=== PATIENT | female | born 2000 | race Caucasian/White ===

== ENCOUNTER 2023-04-28 02:05 | Outpatient (CLI) | payer BC, SELFPAY | END 2023-04-28 02:06 | disposition home or self-care (01) | LOC: AMB 05-06 19:38 | PROVIDERS: PCP Family Medicine; Visit Provider Family Medicine | DX: S19.9XXA Unspecified injury of neck, initial encounter (principal); Y04.2XXA Assault by strike against or bumped into by another person, initial encounter; Y92.009 Unspecified place in unspecified non-institutional (private) residence as the place of occurrence of the external cause | CPT/HCPCS: A0425; A0429 ==

== ENCOUNTER 2023-04-28 02:39 | Emergency (ER) | payer BC, SELFPAY ==
[2023-04-28 02:47] VITALS: BP 120/82; PULSE 88; RESP 24; TEMP 37; O2SAT 99; BMI 20.6
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
[2023-04-28] MEDS: KETOROLAC 15 MG/ML inj IVP (04:00)
[2023-04-28] MEDS: LORazepam 2 MG/ML inj 0.5 MG IVP (04:00)
[2023-04-28 04:08] LABS: Ur HCG Qualitative* Negative (Negative)
== END 2023-04-28 05:41 | disposition home or self-care (01) ==
PROVIDERS: Emergency Provider Family Medicine; PCP Family Medicine
DX: T71.9XXA Asphyxiation due to unspecified cause, initial encounter (principal); Y04.2XXA Assault by strike against or bumped into by another person, initial encounter
CPT/HCPCS: 70498; 81025; 96374; 96375; 99284; J1885; J2060; Q9967

== ENCOUNTER 2023-07-04 11:34 | Outpatient (CLI) | payer BC, SELFPAY | END 2023-07-04 11:35 | disposition home or self-care (01) | PROVIDERS: PCP Family Medicine; Visit Provider Advanced Practice Midwife | DX: Z01.818 Encounter for other preprocedural examination (principal); Z11.3 Encounter for screening for infections with a predominantly sexual mode of transmission; Z71.1 Person with feared health complaint in whom no diagnosis is made | CPT/HCPCS: 86592; 86703; 86706; 86803; 87340; 87491; 87591 ==

== ENCOUNTER 2023-12-08 14:56 | Emergency (ER) | payer BC, SELFPAY ==
[2023-12-08 14:59] VITALS: BP 120/91; PULSE 74; RESP 16; TEMP 37.5; O2SAT 98; BMI 23.0
--- NOTE | 2023-12-08 15:10 | ED.ABDPAIN ---
HPI - Abdominal Pain General Time Seen by Provider: 15:10 Date Seen: 12/08/23 Chief Complaint: Abdominal Pain Stated Complaint: Abdominal pain R side -IUD issues? Time Seen by Provider: 12/08/23 14:58 Source: patient and RN notes reviewed Mode of arrival: ambulatory Limitations: no limitations History of Present Illness HPI narrative: 23-year-old female is coming in with concern of periumbilical right-sided abdominal pain. She is wondering if it could be her IUD. She had a ParaGard IUD put in about 3 months ago. She has had cramping since it was put in. She is hoping to get it switched to the arm implant, wonders if we could do that today. I unfortunately reviewed with her that we do not do Nexplanon insertion. She wonders if the IUD could have moved. She believes this pain awoke her around 5:00 a.m., feels like it is getting worse. Since yesterday, has had sense of increased need for defecation. The stools are normal but she is going a lot more. She states if she moves position or walks, feels a pulling sensation in her abdomen. She did eat breakfast this morning, has not eaten lunch but does feel hungry. No diarrhea, no nausea or vomiting. She has not had a fever. No prior abdominal surgery. On aware of any family history of appendicitis. MD elicited complaint: abdominal pain Related Data Patient : No Allergies Allergy/AdvReac Type Severity Reaction Status Date / Time No Known Allergies Allergy Unknown Unknown Verified 12/08/23 14:59 Review of Systems Status of ROS Reports: 6 or more systems reviewed and unremarkable except as noted in History and below PFSH PFS Medical History History of marijuana use ?F12.91 - Cannabis use, unspecified, in remission (ICD-10) Surgical History H/O breast augmentation ?Z98.82 - Breast implant status (ICD-10) History of sinus surgery (09/23/20) ?Z98.890 - Other specified postprocedural states (ICD-10) Family History Mother Breast cancer, Onset Age: 53 Social History Narrative: 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, 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, 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[employer], 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 Exercise 5 to 6 times a week by very physical work and weightlifting Nonsmoker Does not drink alcohol Smokes marijuana for anxiety What is your current living situation?: I presently have a place to live Problems where you live: no known problems In the past 12 months, utilities in danger of being shut off: no In past 12 months, lack of transportation kept you from medical appts, meetings, work, or getting things needed for daily living: no In the past 12 mos, have been you worried that your food would run out before you had money to buy more?: never true In the past 12 mos, the food you bought just didn't last and you didn't have money to buy more?: never true Highest level of school completed/degree received: high school graduate Smoking Status: Never smoker Do you use any of these nicotine containing products: None Second hand tobacco smoke exposure: No How often do you have a drink containing alcohol: never AUDIT-C Alcohol total score: 0 Non-prescribed substance use: marijuana (any form) How often does anyone, including family, friends and others, physically hurt you: never How often does anyone, including family, friends and others, insult or talk down to you: decline to answer How often does anyone, including family, friends and others, threaten you with harm: decline to answer How often does anyone, including family, friends and others, scream or curse at you: decline to answer Little interest or pleasure in doing things: several days Feeling down, depressed, or hopeless: more than half the days Are you currently sexually active: No In the past 12 months, how many sex partners have you had: more than one service: No Exam Const: Vital Signs, click to edit/add: Vital Signs - 24 hr 12/08/23 14:59 Temperature 99.5 F Pulse Rate [Pulse Oximeter] 74 Respiratory Rate 16 Blood Pressure [Le ft Upper Arm] 120/91 H Pulse Oximetry 98 Oxygen Delivery Me thod Room Air Only the very pleasant 23-year-old female, alert, interactive, no apparent distress. Sclera clear, face atraumatic, speech normal. Lungs are clear, good air entry, wheeze or crackles. CV regular rate and rhythm, no murmur, normal S1-S2, no S3-S4. Complains of pain when I have her lie back on the bed. Abdomen is nondistended, bowel sounds are present. She has no palpable organomegaly, has right paraumbilical abdominal pain with some guarding but no rebound. Does generalize slightly into the right lower quadrant. I do not feel any masses. Skin has tattoos but no no rash on skin visualized. Patient was ambulatory into the ED of her own accord. Documenting provider has reviewed patient's vital signs: yes Course Course ED Course: Patient will have an IV started, 15 mg of IV Toradol for pain management. We will proceed with CT imaging, labs. Have reviewed with her that certainly IUD migration is a possibility, will confirm negative hCG status, need to consider such things as appendicitis as well. Thus, star was CT imaging and labs. Reevaluation(s) Time of Reevaluation #1: 17:30 Reevaluation #1: Reviewed with patient her CT. We did review the possibly inflamed cervix. I think she is stable to discharge in follow-up with her primary clinic, can remove the IUD, do further inspection of cervix at that time. On re-evaluation, there certainly could be a component of abdominal wall pain. Patient has increased pain as I have her lie back. She feels the stomach is worse when stretching out. She does describe herself as a gym rat, does think there could be a muscular component here. She understands we could not effectively rule out other etiologies without imaging. Vital Signs Vital signs: Initial Vital Signs Temperature 99.5 F 12/08/23 14:59 Temperature Source Temporal Artery Scan 12/08/23 14:59 Pulse Rate 74 12/08/23 14:59 Respiratory Rate 16 12/08/23 14:59 Blood Pressure 120/91 H 12/08/23 14:59 Blood Pressure Mean 100 12/08/23 14:59 Blood Pressure Position Sitting 12/08/23 14:59 Pulse Oximetry 98 12/08/23 14:59 Oxygen Delivery Method Room Air 12/08/23 14:59 Vital Signs Temperature 99.5 F 12/08/23 14:59 Pulse Rate 74 12/08/23 14:59 Respiratory Rate 16 12/08/23 14:59 Blood Pressure 120/91 H 12/08/23 14:59 Pulse Oximetry 98 12/08/23 14:59 Oxygen Delivery Method Room Air 12/08/23 14:59 Temperature 99.5 F 12/08/23 14:59 Pulse Rate 74 12/08/23 14:59 Respiratory Rate 16 12/08/23 14:59 Blood Pressure 120/91 H 12/08/23 14:59 Pulse Oximetry 98 12/08/23 14:59 Oxygen Delivery Method Room Air 12/08/23 14:59 Medications Administered Medications: Discontinued Medications Generic Name Dose Route Start Last Admin Trade Name Freq PRN Reason Stop Dose Admin Ketorolac Tromethamine 15 mg 12/08/23 15:20 12/08/23 15:45 Ketorolac 15 Mg/Ml Inj IVP 12/08/23 15:21 15 mg ONCE ONE Administration MDM - Abdominal Pain Lab Data Attestation: I reviewed the patient's lab results. Labs: Lab Results 12/08/23 Range/Units 15:45 WBC 8.02 (4.50-11.00) K/uL RBC 4.81 (4.00-5.20) m/uL Hgb 14.4 (12.0-16.0) gm/dL Hct 43.1 (33.0-51.0) % MCV 90 (80-100) fL MCH 30 (26-34) pg MCHC 33 (32-36) gm/dL RDW Coeff of Jade 12.0 (11.5-15.5) % Plt Count 263 (140-440) K/uL Neut % (Auto) 49.6 (42.0-72.0) % Lymph % (Auto) 42.3 (20-44) % [place] % (Auto) 5.2 (0.0-11.0) % Eos % (Auto) 1.7 (0.0-7.0) % Baso % (Auto) 0.5 (0.0-3.0) % Neut # (Auto) 3.97 (1.7-7.0) K/uL Lymph # (Auto) 3.39 H (0.90-2.90) K/uL [place] # (Auto) 0.40 (0.00-0.90) K/UL Eos # (Auto) 0.14 (0.00-0.50) K/uL Baso # (Auto) 0.04 (0.00-0.30) K/uL Abs Immat Gran (auto) 0.06 (0.00-0.30) K/uL Imm/Tot Granulo (auto) 0.7 % Sodium 137 (135-149) mmol/L Potassium 3.9 (3.6-5.1) mmol/L Chloride 103 (96-114) mmol/L Carbon Dioxide 25 (20-32) mmol/L Anion Gap 9 (7-15) mEq/L BUN 19 (5-24) mg/dL Creatinine 0.5 (0.5-1.5) mg/dL Estimated Creat Clear 149.82 Estimated GFR 134 ml/min Glucose 88 (60-115) mg/dL Lactate 0.8 (0.5-1.9) mmol/L Calcium 9.8 (8.4-10.6) mg/dL Total Bilirubin 0.4 (0.1-1.5) mg/dL AST 23 (12-35) U/L ALT 15 (4-35) U/L Alkaline Phosphatase 40 (40-150) U/L C-Reactive Protein < 0.5 L (0.5-1.0) mg/dL Total Protein 8.1 (6.0-8.3) g/dL Albumin 4.9 (3.3-5.0) g/dL HCG, Qual Negative (Negative) Imaging Data CT scan - abdomen: Attestation: I have reviewed the pertinent imaging results. Radiologist's impression: Patient: NATE RIZZO Facility:?[facility] Patient ID:?[id number] Site Patient ID:?[id number]. Site :?2000 Study:?CT Abdomen/Pelvis WITHOUT-12/08/2023 4:58:49 PM Ordering Physician:?KORTNEY Final Report: INDICATION: Periumbilical abdominal pain. TECHNIQUE: CT abdomen and pelvis acquired with 100 cc Omnipaque 350 IV contrast. COMPARISON: None. FINDINGS: Lower chest: Unremarkable. Liver: Unremarkable. Normal in size and attenuation. No suspicious masses. Gallbladder and bile ducts: Unremarkable. No stones or inflammation. No biliary dilatation. Pancreas: Unremarkable. No mass or inflammation. Spleen: Unremarkable. Normal in size. No masses. Adrenal glands: Unremarkable. No nodules. Kidneys: Unremarkable. No suspicious masses, stones, or hydronephrosis. GI tract: Unremarkable. Normal in caliber. No sign of mass or inflammation. Appendix is difficult to discern. There are no signs of appendicitis. Vasculature: Abdominal aorta is normal in caliber. Mesenteric arteries are patent. Lymph nodes: No lymphadenopathy. Peritoneum/Abdominal Wall: Unremarkable. No sign of mass or infiltration. No free air or significant free fluid. Pelvis: IUD appears in satisfactory position within an obliquely oriented uterus. The cervix appears enlarged and indistinct and may be edematous. Remainder of the pelvic structures are unremarkable. Bones: Unremarkable for age. IMPRESSION: 1. Nonspecific enlargement of the cervix which may be edematous or inflamed. 2. Remainder of the exam is unremarkable. No other findings to explain periumbilical abdominal pain. Please note that all CT scans at this facility use dose modulation, iterative reconstruction, and/or weight-based dosing when appropriate to reduce radiation dose to as low as reasonably achievable. Dictated by Phil Valadez MD @ 12/08/2023 5:19:02 PM (Electronic Signature) Discharge Plan Discharge Clinical Impression: Abdominal wall pain in periumbilical region Patient Disposition: Home, Self-Care Condition: Stable Instructions: Abdominal Pain (ED) Additional Instructions: Recommend follow up in clinic with your primary provider to discuss your IUD concerns, request alternate contraception. Can alternate Tylenol ibuprofen per bottle directions for this abdominal wall discomfort, can try ice or heat and use which helps better. Activity Level: Activity as Tolerated Prescriptions: No Action ParaGard T 380A 380 square mm intrauterine device 380 mm2 intrauterine ONCE Qty: 1 0RF Follow Up/Referrals: Tianna Garcia MD [Primary Care Provider] - Stand Alone Forms: [employer] Info Instructions
[2023-12-08] MEDS: KETOROLAC 15 MG/ML inj IVP (15:45)
[2023-12-08 15:52] LABS: Basophils Absolute Auto 0.04 K/uL (0.00-0.30); Basophils Percent Auto 0.5 % (0.0-3.0); Eosinophils Absolute Auto 0.14 K/uL (0.00-0.50); Eosinophils Percent Auto 1.7 % (0.0-7.0); Hematocrit 43.1 % (33.0-51.0); Hemoglobin* 14.4 gm/dL (12.0-16.0); Immature Granulocytes Abs Auto 0.06 K/uL (0.00-0.30); Immature Granulocytes Pct Auto 0.7 %; Lymphocytes Absolute Auto 3.39 K/uL (0.90-2.90); Lymphocytes Percent Auto 42.3 % (20-44); Mean Corpuscular HGB Conc 33 gm/dL (32-36); Mean Corpuscular Hemoglobin 30 pg (26-34); Mean Corpuscular Volume 90 fL (80-100); Monocytes Percent Auto 5.2 % (0.0-11.0); Neutrophils Absolute Auto 3.97 K/uL (1.7-7.0); Neutrophils Percent Auto 49.6 % (42.0-72.0); Platelet Count* 263 K/uL (140-440); Red Blood Count 4.81 m/uL (4.00-5.20); White Blood Count* 8.02 K/uL (4.50-11.00)
[2023-12-08 15:57] LABS: Slide Review Reflex No
[2023-12-08 15:59] LABS: Lactate* 0.8 mmol/L (0.5-1.9)
[2023-12-08 16:14] LABS: Chloride* 103 mmol/L (96-114)
[2023-12-08 16:15] LABS: Albumin* 4.9 g/dL (3.3-5.0); Sodium* 137 mmol/L (135-149)
[2023-12-08 16:16] LABS: Potassium* 3.9 mmol/L (3.6-5.1)
[2023-12-08 16:18] LABS: Alanine Aminotransferase* 15 U/L (4-35); Alkaline Phosphatase* 40 U/L (40-150); Anion Gap 9 mEq/L (7-15); Aspartate Amino Transferase* 23 U/L (12-35); Bilirubin Total* 0.4 mg/dL (0.1-1.5); Carbon Dioxide* 25 mmol/L (20-32); Creatinine* 0.5 mg/dL (0.5-1.5); Est. Creatinine Clearance* 149.82; Estimated Glomerular Filt Rate 134 ml/min; Total Protein* 8.1 g/dL (6.0-8.3)
[2023-12-08 16:19] LABS: Blood Urea Nitrogen* 19 mg/dL (5-24); Calcium* 9.8 mg/dL (8.4-10.6); Glucose* 88 mg/dL (60-115)
[2023-12-08 16:22] LABS: C Reactive Protein* < 0.5 mg/dL (0.5-1.0)
[2023-12-08 16:23] LABS: HCG Qualitative Serum* Negative (Negative)
--- NOTE | 2023-12-08 16:29 | CT_ITS ---
Final Report Patient: NATE RIZZO Facility:?[facility] Patient ID:?[id number] Site Patient ID:?[id number]. Site :?2000 Study:?CT Abdomen/Pelvis WITHOUT-12/08/2023 4:58:49 PM Ordering Physician:DAVID Final Report: INDICATION: Periumbilical abdominal pain. TECHNIQUE: CT abdomen and pelvis acquired with 100 cc Omnipaque 350 IV contrast. COMPARISON: None. FINDINGS: Lower chest: Unremarkable. Liver: Unremarkable. Normal in size and attenuation. No suspicious masses. Gallbladder and bile ducts: Unremarkable. No stones or inflammation. No biliary dilatation. Pancreas: Unremarkable. No mass or inflammation. Spleen: Unremarkable. Normal in size. No masses. Adrenal glands: Unremarkable. No nodules. Kidneys: Unremarkable. No suspicious masses, stones, or hydronephrosis. GI tract: Unremarkable. Normal in caliber. No sign of mass or inflammation. Appendix is difficult to discern. There are no signs of appendicitis. Vasculature: Abdominal aorta is normal in caliber. Mesenteric arteries are patent. Lymph nodes: No lymphadenopathy. Peritoneum/Abdominal Wall: Unremarkable. No sign of mass or infiltration. No free air or significant free fluid. Pelvis: IUD appears in satisfactory position within an obliquely oriented uterus. The cervix appears enlarged and indistinct and may be edematous. Remainder of the pelvic structures are unremarkable. Bones: Unremarkable for age. IMPRESSION: 1. Nonspecific enlargement of the cervix which may be edematous or inflamed. 2. Remainder of the exam is unremarkable. No other findings to explain periumbilical abdominal pain. Please note that all CT scans at this facility use dose modulation, iterative reconstruction, and/or weight-based dosing when appropriate to reduce radiation dose to as low as reasonably achievable. Dictated by Phil Valadez MD @ 12/08/2023 5:19:02 PM (Electronic Signature)
[2023-12-08 17:47] VITALS: BP 120/91; PULSE 74; RESP 16; TEMP 37.5
== END 2023-12-08 17:48 | disposition home or self-care (01) ==
PROVIDERS: Emergency Provider Family Medicine; PCP Family Medicine
DX: R10.13 Epigastric pain (principal)
CPT/HCPCS: 36415; 74177; 80053; 83605; 84703; 85025; 86140; 96374; 99284; J1885; Q9967

== ENCOUNTER 2024-01-18 05:51 | Emergency (ER) | payer BC, SELFPAY ==
--- NOTE | 2024-01-18 05:58 | CT_ITS ---
Patient: NATE RIZZO Facility:?[facility] Patient ID:?[id number] Site Patient ID:?[id number]. Site :?2000 Study:?CT-Head W/O-01/18/2024 7:31:54 AM Ordering Physician:?LAWRENCE Final Report: Indication: Injury Technique: CT examination of the head was performed. Imaging was acquired from the skull base through the vertex. Contrast was not administered. Sagittal and coronal reformatted imaging was performed. Please note that all CT scans at this facility use dose modulation, iterative reconstruction, and/or weight-based dosing when appropriate to reduce radiation dose to as low as reasonably achievable. Comparison: None Findings: Sulci and ventricles appear normal for patient age. There is no mass effect, midline shift, hemorrhage, edema or acute infarction. There is no abnormal extra-axial fluid collection. There are bilateral nondisplaced nasal bone fractures. It is unclear whether these are acute. Correlate with point tenderness in this area. No calvarial fracture. Impression: 1. No acute intracranial posttraumatic findings. 2. No calvarial fracture. 3. Bilateral nondisplaced nasal bone fractures, age indeterminate. Correlate with mechanism of injury and areas of point tenderness. Please note that all CT scans at this facility use dose modulation, iterative reconstruction, and/or weight-based dosing when appropriate to reduce radiation dose to as low as reasonably achievable. Dictated by Joel Nichole MD @ 01/18/2024 7:45:09 AM Signed by:?Joel Nichole MD @01/18/2024 7:45:09 AM (Electronic Signature)
[2024-01-18 05:59] VITALS: BP 129/89; PULSE 88; RESP 18; TEMP 36.9; O2SAT 98; BMI 22.3
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
[2024-01-18 07:02] LABS: HCG Qualitative Serum* Negative (Negative)
== END 2024-01-18 07:58 | disposition home or self-care (01) ==
PROVIDERS: Emergency Provider Internal Medicine; PCP Family Medicine
DX: S00.93XA Contusion of unspecified part of head, initial encounter (principal); W22.8XXA Striking against or struck by other objects, initial encounter
CPT/HCPCS: 36415; 70450; 84703; 99283; 99284

== ENCOUNTER 2024-05-06 12:57 | Outpatient (CLI) | payer BC, SELFPAY ==
--- NOTE | 2024-05-06 13:00 | CRLHL7_ITS ---
For Patients: As a result of the Century Cures Act, medical imaging exams and procedure reports are released immediately into your electronic medical record. You may view this report before your referring provider. If you have questions, please contact your health care provider. INDICATION: Dating and viability. LMP 02/24/2024. COMPARISON: None. TECHNIQUE: Real-time garibay-scale imaging of the pelvis was performed. FINDINGS: Sonographic imaging demonstrates a single living intrauterine gestation. The embryo has a regular cardiac rate measuring 178 beats per minute. The embryo`s crown-rump length measures 4.1 cm which corresponds to a gestational age of 11 weeks 0 days with sonographic due date 11/25/2024. There is a normal-appearing yolk sac. The placenta has not yet developed. No evidence of a perigestational hemorrhage. The right ovary was not visualized. The left ovary measures 3.3 x 2.6 x 2.6 cm and contains a corpus luteal cyst. No free fluid in the pelvic cul-de-sac. IMPRESSION: 1. Single living intrauterine gestation corresponding to an ultrasound gestational age of 11 weeks 0 days with sonographic due date 11/25/2024. 2. The clinical gestational age by LMP is 10 weeks 2 days. Dictated by Rody York MD @ 05/08/2024 3:49:35 AM (Electronically Signed)
== END 2024-05-06 12:58 | disposition home or self-care (01) ==
LOC: US 12:58
PROVIDERS: PCP Family Medicine; Visit Provider Advanced Practice Midwife
DX: Z34.91 Encounter for supervision of normal pregnancy, unspecified, first trimester (principal); Z3A.11 11 weeks gestation of pregnancy
CPT/HCPCS: 76801; 76817

== ENCOUNTER 2024-05-07 10:14 | Outpatient (CLI) | payer BC, SELFPAY | END 2024-05-07 10:15 | disposition home or self-care (01) | LOC: NFLDREF 05-09 08:48 | PROVIDERS: PCP Family Medicine; Referring Provider Family Medicine; Visit Provider Advanced Practice Midwife | DX: Z34.01 Encounter for supervision of normal first pregnancy, first trimester (principal); N39.0 Urinary tract infection, site not specified; B96.20 Unspecified Escherichia coli [E. coli] as the cause of diseases classified elsewhere; Z67.11 Type A blood, Rh negative | CPT/HCPCS: 80306; 86592; 86703; 86704; 86706; 86762; 86787; 86803; 86850; 86900; 86901; 87086; 87186; 87340 ==

== ENCOUNTER 2024-06-04 14:52 | Outpatient (CLI) | payer BC, SELFPAY | END 2024-06-04 14:53 | disposition home or self-care (01) | LOC: NFLDREF 14:53 | PROVIDERS: PCP Family Medicine; Visit Provider Advanced Practice Midwife | DX: R30.0 Dysuria (principal) | CPT/HCPCS: 87086 ==

== ENCOUNTER 2024-07-21 10:01 | Outpatient (CLI) | payer BC, SELFPAY ==
--- NOTE | 2024-07-21 10:15 | CRLHL7_ITS ---
For Patients: As a result of the Century Cures Act, medical imaging exams and procedure reports are released immediately into your electronic medical record. You may view this report before your referring provider. If you have questions, please contact your health care provider. INDICATION: Evaluate anatomy. COMPARISON: none TECHNIQUE: Real time garibay scale imaging of the fetus was performed as well as color Doppler analysis of the umbilical vessels. FINDINGS: Sonographic imaging demonstrates a single living intrauterine gestation. Fetus demonstrates a regular cardiac rate of 154 beats per minute. Fetus has a vertex position. The placenta lies anteriorly without evidence of placenta previa. Placental edge 8 cm from the internal cervical os. Amniotic fluid volume appears normal. Single deepest vertical pocket: 4.1 cm. The cervix is closed and measures 3.7 cm in length. The composite ultrasound gestational age is calculated at 21 weeks 3 days with an estimated sonographic due date of 11/28/2024. The estimated weight is 401 grams which lies at the 44th %. The following biometric measurements were obtained: Biparietal diameter: 5.1 cm/21 weeks 3 days 58th% Head circumference: 18.7 cm/21 weeks 0 days 34th% Abdominal circumference: 16.4 cm/21 weeks 3 days 53rd% Femur length: 3.4 cm/20 weeks 5 days 28th% The HC/AC ratio measures: 1.14 range (1.06-1.24) On anatomic survey, there is a normal appearance of the cerebral ventricles, cavum septi pellucidi, cisterna magna and cerebellum. The nose, lips, and facial profile appear normal. The cervical, thoracic and lumbar spine are well visualized and appear normal. There is a normal four-chamber heart view and the left and right ventricular outflow tracts appear normal. The diaphragm and stomach appear normal. The kidneys and bladder also appear normal. Mild bilateral renal pelviectasis measuring 3 millimeters, considered normal. There is a normal three-vessel cord and cord insertion site. The four extremities appear normal. IMPRESSION: Normal OB ultrasound exam with concordance of clinical and sonographic dating. No intrinsic abnormalities noted on anatomic survey. Dictated by Torin Marinelli MD @ 07/22/2024 9:44:29 AM (Electronically Signed)
== END 2024-07-21 10:02 | disposition home or self-care (01) ==
LOC: US 10:01
PROVIDERS: PCP Family Medicine; Visit Provider Registered Nurse
DX: Z34.92 Encounter for supervision of normal pregnancy, unspecified, second trimester (principal); Z3A.21 21 weeks gestation of pregnancy
CPT/HCPCS: 76805; 80306

== ENCOUNTER 2024-09-09 13:35 | Outpatient (CLI) | payer BC, SELFPAY | END 2024-09-09 13:36 | disposition home or self-care (01) | LOC: NFLDREF 09-12 20:38 | PROVIDERS: PCP Family Medicine; Referring Provider Family Medicine; Visit Provider Advanced Practice Midwife | DX: Z34.93 Encounter for supervision of normal pregnancy, unspecified, third trimester (principal); Z3A.28 28 weeks gestation of pregnancy | CPT/HCPCS: 86592; 86850 ==

== ENCOUNTER 2024-10-12 14:50 | Outpatient (CLI) | payer BC, SELFPAY | END 2024-10-12 14:51 | disposition home or self-care (01) | LOC: NFLDREF 14:51 | PROVIDERS: PCP Family Medicine; Visit Provider Advanced Practice Midwife | DX: F12.91 Cannabis use, unspecified, in remission (principal) | CPT/HCPCS: 80306 ==

== ENCOUNTER 2024-11-04 09:50 | Outpatient (CLI) | payer BC, SELFPAY | END 2024-11-04 09:51 | disposition home or self-care (01) | LOC: NFLDREF 11-09 02:41 | PROVIDERS: PCP Family Medicine; Referring Provider Family Medicine; Visit Provider Advanced Practice Midwife | DX: Z34.03 Encounter for supervision of normal first pregnancy, third trimester (principal) | CPT/HCPCS: 87081; 87653 ==

== ENCOUNTER 2024-12-04 04:27 | Inpatient (IN) | payer BC, SELFPAY ==
[2024-12-04] VITALS (56 sets, daily range): BP systolic 92–141; BP diastolic 48–73; PULSE 27–106; RESP 16–18; TEMP 36.5–36.9; O2SAT 80–100; BMI 29.6
[2024-12-04] MEDS: LACTATED RINGERS 1000 ML 1,000 ML IV (04:14)
--- NOTE | 2024-12-04 04:35 | W.PM.LDBA ---
Documented by User: Annel Cowart CNM 12/04/24 07:15 Subjective History of Present Illness Narrative: Patient is being admitted to Labor and Delivery for []. She is a 24 year old at weeks gestation. Her full history and physical was dictated by [] on []. Please see this for details. [] Specific Issues/Plans Fiance: Yovani Boy! H&P 11/09/24 by Jessica Zepeda CNM Very uncomfortable with cervical exams, consider nitrous use PRN in labor #. Marijuana use, stopped when occurred -UDS ordered at [facility]-negative -2nd tri-negative -3rd tri 34w:negative #. Hep B non-immune Recommended vaccine due to health care worker, declined #.+UTI asymptomatic at [facility]- E.Coli, amoxicillin was sent before final results and was working at relieving symptoms MELISSA- neg #. Varicella non Immune Recommend vaccine #. Blood Type A-: Discussed FOB testing. Consent not signed as partner was present but did call and discuss on the phone and she is willing to sign next visit. They are looking into his blood type. Recommend Rhogam -pt decided against US: tri-05/06/2024 SLIUP consistent with dating COVID:?? Flu:???declined Tdap:?declined RSV:???declined 32wk Mental Health:? 34wk hgb:???12.4 Pap: Last pap: 03/07/23 NILM Comments: ASSESSMENT:?? [age] G[ ]P[ ] at [ ] weeks gestation?? complicated by:?? Labor type: [Induced/Spontaneous], [Early/Active] labor?? Category [1, 2, 3] FHR pattern.??? Labor complicated by: [ ]?? GBS [negative/positive]? PLAN:?? 1. Routine intrapartum cares as ordered. Continue with expectant management?? 2. Monitoring per policy, [continuous or intermittent]?? 3. Planning unmedicated . Desires water . Consent signed. Hep C negative. Candidate for analgesia of choice.??? 4. Patient encouraged to reposition and ambulate to promote physiologic labor and .?? 5. [GBS prophylaxis initiated for GBS positive status. Will treat with antibiotics per protocol.]? 6. Anticipate ? OB - Problem Based A/P Additional Plan (1) Post term : Status: Acute (2) Pain during labor: Status: Acute (3) : Status: Acute Plan ASSESSMENT:?? 24 at 40 weeks 4days gestation?? complicated by:?No complications Labor type: Presented to unit in spontaneous, early labor?? Category 2 FHR pattern.??? Labor complicated by: Cat 2 tones, ineffective coping GBS negative ?? PLAN:?? 1. Routine intrapartum cares as ordered. Consents to IOL for cat 2 tones. 2. Monitoring per policy, continuous. Administer IV fluid, apple juice. Oral cytotec for ripening 3. Candidate for analgesia of choice.?Consent signed if water desired. Hep C negative. ? 4. Patient encouraged to reposition and ambulate to promote physiologic labor and .?? 5. Anticipate ? Angus Sethi APRN, CNM, was present for visit and have reviewed and agree with documentation by the Certified Nurse Midwifery Student.? OB Exam Physical Exam Narrative: Vitals Reviewed Constitutional:? Alert and oriented x3 HEENT:? Normocephalic, atraumatic Neck:? Supple Lungs:? Clear to auscultation bilaterally Heart:? Regular rate and rhythm, no murmur, rub or gallop Abdomen:? Soft, nontender, and gravid. Vertex by Rosalino's, confirmed with cervical exam. Extremities:? No edema or erythema Cervix: [] cm/[]%/[] station/[vertex] NST: [] bpm/[] variability/[]accelerations/[]decelerations/[]contractions Documented by User: Sameera Capone 12/04/24 05:57 Subjective History of Present Illness Time Seen by Provider: 04:15 Date Seen: 12/04/24 Narrative: Patient is being admitted to Labor and Delivery for painful contractions. She is a 24 year old at 40 weeks 4 days gestation. Her full history and physical was dictated by Jessica Zepeda CNM on 11/09/24. Please see this for details. Patient came in with painful, regular contractions that she is having to breathe through, and is tearful. Pain experienced mostly in the lower abdomen and radiating to the low back, with counterpressure offering relief. She expressed interest in IOL. Discussed induction options for cervical ripening, which she is agreeable to. Pain management options reviewed. Patient feels dehydrated and is open to IV fluid support. Specific Issues/Plans Fiance: Yovani Boy! H&P 11/09/24 by Jessica Zepeda CNM Very uncomfortable with cervical exams, consider nitrous use PRN in labor #. Marijuana use, stopped when occurred -UDS ordered at [facility]-negative -2nd tri-negative -3rd tri 34w:negative #. Hep B non-immune Recommended vaccine due to health care worker, declined #.+UTI asymptomatic at [facility]- E.Coli, amoxicillin was sent before final results and was working at relieving symptoms MELISSA- neg #. Varicella non Immune Recommend vaccine #. Blood Type A-: Discussed FOB testing. Consent not signed as partner was present but did call and discuss on the phone and she is willing to sign next visit. They are looking into his blood type. Recommend Rhogam -pt decided against US: tri-05/06/2024 SLIUP consistent with dating COVID:?? Flu:???declined Tdap:?declined RSV:???declined 32wk Mental Health:? 34wk hgb:???12.4 Pap: Last pap: 03/07/23 NILM OB - Problem Based A/P Additional Plan (1) Post term : Status: Acute (2) Pain during labor: Status: Acute (3) : Status: Acute Plan ASSESSMENT:?? 24 at 40 weeks 4days gestation?? complicated by:?No complications Labor type: Presented to unit in spontaneous, early labor?? Category 2 FHR pattern.??? Labor complicated by: No complications GBS negative ?? PLAN:?? 1. Routine intrapartum cares as ordered. Plan for elective induction of labor. 2. Monitoring per policy, continuous.Administer IV fluid. 3. Candidate for analgesia of choice.?Consent signed if water desired. Hep C negative. ? 4. Patient encouraged to reposition and ambulate to promote physiologic labor and .?? 5. Anticipate ? Delivery/Labor/Induction Plan Plan: induction (Patient desires induction. ) Induction method: per misoprostol protocol OB Result Labs Blood Type: A (-) negative Rubella: immune RPR/VDLR: nonreactive GBS Status: negative HBsAG: negative OB Exam Physical Exam Narrative: Vitals Reviewed Constitutional:? Alert and oriented x3 HEENT:? Normocephalic, atraumatic Neck:? Supple Lungs:? Clear to auscultation bilaterally Heart:? Regular rate and rhythm, no murmur, rub or gallop Abdomen:? Soft, nontender, and gravid. Vertex by Rosalino's, confirmed with cervical exam. Extremities:? No edema or erythema Cervix: 0.5 cm NST: 140 bpm/minimal variability/accelerations absent/no decelerations/Regular contractions eery 1-3 minutes Detailed Labor and Delivery Exam Patient Gravid: Yes Dilation (cm): 1 Effacement (%): 70 Cervix position: posterior Consistency: medium Contraction Frequency: 1-3 minutes Contraction duration (sec): 90 Tachysystole: No Contraction intensity: Moderate
[2024-12-04] MEDS: LACTATED RINGERS 1000 ML 1,000 ML 125 ML IV ×3 (05:29→20:56)
--- NOTE | 2024-12-04 08:16 | PM.OBPNL ---
Subjective Date Seen: 12/04/24 Narrative: ?Andressa is coping well with labor pain/contractions at this time. She did have a moment of feeling very emotional that made it hard for her to cope this morning. This was related to a friend who was wanting to come be with her in labor, Andressa is not wanting that at this time. ?Yovani is with her for support. ?She would like to continue with breathing and sitting on the ball for comfort and pain management at this time. She is having regular contractions that palpate mild so has not received anything to augment her labor yet. Objective Exam: VSS, afebrile General Appearance:? Calm, cooperative. ?No acute distress. ? Psychiatric Exam: Alert and oriented, appropriate affect Abdomen: Gravid Ctx: ?Q 2-3 min apart. ? ?Moderate ? FHTs: ?Baseline: 150. ? ? Variability: moderate. ?Accels:- . ? ?Decels: ?variables. SVE: deferred Membranes: Intact ? Vital Signs: Last Vital Signs Temp 97.9 F 12/04/24 07:36 Pulse 82 12/04/24 07:36 Resp 16 12/04/24 07:36 BP 129/73 12/04/24 07:36 Contractions Contraction intensity: Moderate Plan Plan: Assessment:?? at 40.4 weeks gestation?? GBS neg Patient is coping well with challenges of labor.?? Labor type: Spontaneous, Early labor? Category 2 FHR pattern.? complicated by: #.+UTI asymptomatic at NOB #. Varicella non Immune #. Rh negative blood type Labor complicated by: Category 2 FHT Ineffective coping Plan:?? Consider augmentation if contractions space or patient is not progressing Continue with routine intrapartum cares as ordered.?? Patient encouraged to move and change positions to promote physiologic labor and .?? Nonpharmacologic comfort measures per patient preference. Candidate for analgesia of choice if desired. Patient planning waterbirth Anticipate progress to NVD. ?
[2024-12-04] MEDS: hydrOXYzine pamoate 25 MG CAPSULE 100 MG PO (12:01)
[2024-12-04] MEDS: MORPHINE 10 MG/ML inj IM (12:01)
--- NOTE | 2024-12-04 14:08 | PM.OBPNL ---
Subjective Time Seen by Provider: 11:45 Date Seen: 12/04/24 Narrative: ?Andressa is coping well with labor pain/contractions. ?Yovani is with her for support. ?She is very tired and still sharad but contractions at this time are not increasing in intensity. Offered her Morphine and Vistaril for rest since she has been up most of the night. She was very happy to try this at this time. ? Objective Exam: VSS, afebrile General Appearance:? Calm, cooperative. ?No acute distress. ? Psychiatric Exam: Alert and oriented, appropriate affect Abdomen: Gravid Ctx: ?Q 2-4 min apart. ? ?Moderate ? FHTs: ?Baseline: 150. ? ? Variability: moderate. ?Accels: +. ? ?Decels: ?variable. SVE: deferred Membranes: Intact ? Vital Signs: Last Vital Signs Temp 97.8 F 12/04/24 12:15 Pulse 85 12/04/24 13:19 Resp 16 12/04/24 12:15 BP 102/52 L 12/04/24 13:19 Contractions Contraction intensity: Moderate Plan Plan: Assessment:?? at 40.4 weeks gestation?? GBS neg Patient is coping well with challenges of labor.?? Labor type: Spontaneous, Early labor? Category 2 FHR pattern.? complicated by: #.+UTI asymptomatic at NOB #. Varicella non Immune #. Rh negative blood type Labor complicated by: Category 2 FHT Ineffective coping Plan:?? MS and Vistaril for rest, reevaluate plan in a few hours Continue with routine intrapartum cares as ordered.?? Patient encouraged to move and change positions to promote physiologic labor and .?? Nonpharmacologic comfort measures per patient preference. Candidate for analgesia of choice if desired. Patient planning waterbirth Anticipate progress to NVD. ?
--- NOTE | 2024-12-04 15:29 | PM.OBPNL ---
Subjective Time Seen by Provider: 15:29 Date Seen: 12/04/24 Narrative: ?Andressa is coping well with labor pain/contractions. ?Yovani is with her for support. ?She would like to continue with rest and relaxation for comfort and pain management.?She was reporting more pelvic pressure and discomfort with contractions and has continued to contract since admission. Recommended a cervical exam to see if she is making change on her own or will she need augmentation. She was offered Nitrous for the exam which she agreed to. Cervical exams continue to be very uncomfortable for her but she tolerated this well with the use of Nitrous. Objective Exam: VSS, afebrile General Appearance:? Calm, cooperative. ?No acute distress. ? Psychiatric Exam: Alert and oriented, appropriate affect Abdomen: Gravid Ctx: ?Q 1-3 min apart. ? ?Moderate ? FHTs: ?Baseline: 135. ? ? Variability: moderate. ?Accels: +. ? ?Decels: ?early. SVE: /-3 Membranes: Intact ? Vital Signs: Last Vital Signs Temp 98.0 F 12/04/24 15:03 Pulse 77 12/04/24 15:02 Resp 16 12/04/24 15:03 BP 95/50 L 12/04/24 15:02 Contractions Contraction intensity: Moderate Plan Plan: Assessment:?? at 40.4 weeks gestation?? GBS neg Patient is coping well with challenges of labor.?? Labor type: Spontaneous, Early labor? Category 1 FHR pattern.? complicated by: #.+UTI asymptomatic at NOB #. Varicella non Immune #. Rh negative blood type Labor complicated by: Intermittent Category 2 FHT Ineffective coping on admission, now coping well with support Plan:?? Continue with routine intrapartum cares as ordered.?? Patient encouraged to move and change positions to promote physiologic labor and .?? Nonpharmacologic comfort measures per patient preference. Candidate for analgesia of choice if desired. Patient planning waterbirth Anticipate progress to NVD. ?
[2024-12-04] MEDS: LACTATED RINGERS 1000 ML 1,000 ML 1200 ML IV (20:21)
--- NOTE | 2024-12-04 20:57 | PM.OBPNL ---
Subjective Date Seen: 12/04/24 Narrative: ?Andressa is coping with labor pain/contractions. ?Yovani is with her for support. ?She recently requested and epidural for comfort and pain management.?She is currently having this placed. Before that she had been using nitrous for pain management. Objective Exam: VSS, afebrile General Appearance:? Calm, cooperative. ?No acute distress. ? Psychiatric Exam: Alert and oriented, appropriate affect Abdomen: Gravid Ctx: ?Q 2-3 min apart. ? ? ?Strong FHTs: ?Baseline: 155. ? ? Variability: moderate. ?Accels: +. ? ?Decels: ?-. SVE: deferred Membranes: Intact ? Vital Signs: Last Vital Signs Temp 98 F 12/04/24 19:28 Pulse 91 12/04/24 19:27 Resp 18 12/04/24 19:28 BP 122/67 12/04/24 19:27 Pulse Ox 90 12/04/24 20:56 Contractions Contraction intensity: Moderate Plan Plan: Assessment:?? at 40.4 weeks gestation?? GBS neg Patient is coping with challenges of labor.?? Labor type: Spontaneous, Early labor? Category 2 FHR pattern.? complicated by: #.+UTI asymptomatic at NOB #. Varicella non Immune #. Rh negative blood type Labor complicated by: Intermittent Category 2 FHT Ineffective coping on admission, now coping well with support Plan:?? Continue with routine intrapartum cares as ordered.?? Patient encouraged to move and change positions to promote physiologic labor and .?? Epidural per anesthesia Anticipate progress to NVD. ?
[2024-12-04] MEDS: BUPIVACAINE 0.25% PF 10 ML 10 ML ML EPIDURAL (21:00)
[2024-12-04] MEDS: ROPIVACAINE 0.2% 100 ml 100 ML 12 MG EPIDURAL (21:04)
[2024-12-04] MEDS: PHENYLEPHRINE 100 MCG/ML SYRINGE IVP ×3 (21:22→22:08)
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
[2024-12-05] VITALS (34 sets, daily range): BP systolic 90–142; BP diastolic 52–89; PULSE 77–113; RESP 14–18; TEMP 36.4–37.3; O2SAT 95–100
--- NOTE | 2024-12-05 00:11 | PM.OBPNL ---
Subjective Date Seen: 12/05/24 Narrative: ?Andressa is coping well with labor pain/contractions. ?Yovani is with her for support. ?She would like to continue with her epidural for comfort and pain management.?She is now comfortable and has been resting since epidural was placed. Discussed R/B/A to AROM for augmentation at this time, she was agreeable to this plan. She continues to contract regularly but cervix is edematous at this time. BP's are WNL, she did have one elevated BP >140/90 during epidural placement but was having a lot of anxiety and needed significant support to remain still and in position for placement. The elevation was likely from her anxiety during that procedure. If additional elevated BP will consider lab work for preeclampsia. Objective Exam: VSS, afebrile General Appearance:? Calm, cooperative. ?No acute distress. ? Psychiatric Exam: Alert and oriented, appropriate affect Abdomen: Gravid Ctx: ?Q 1-3 min apart. ? ? ?Strong FHTs: ?Baseline: 155. ? ? Variability: min. ?Accels: -. ? ?Decels: ?one variable to the 90's with return to baseline over 90 seconds. SVE: 5/70/-3 edematous cervix Membranes: ?AROM scant amount of clear fluid Vital Signs: Last Vital Signs Temp 98.3 F 12/04/24 22:46 Pulse 92 12/05/24 00:09 Resp 18 12/04/24 22:46 BP 120/66 12/05/24 00:09 Pulse Ox 80 L 12/04/24 22:42 Contractions Contraction intensity: Moderate Plan Plan: Assessment:?? at 40.5 weeks gestation?? GBS neg Patient is coping well with challenges of labor.?? Labor type: Augmented, Early labor? Category 2 FHR pattern.? complicated by: #.+UTI asymptomatic at NOB #. Varicella non Immune #. Rh negative blood type Labor complicated by: Intermittent Category 2 FHT Ineffective coping on admission, now coping well with support Plan:?? Benadryl IV now for edematous cervix Side lying release and position changes for optimal positioning Continue with routine intrapartum cares as ordered.?? Patient encouraged to move and change positions to promote physiologic labor and .?? Continue with epidural for pain relief. Encourage rest between position changes Anticipate progress to NVD. ?
[2024-12-05] MEDS: diphenhydrAMINE 50 MG/ML inj 25 MG IVP (00:17)
[2024-12-05] MEDS: PHENYLEPHRINE 100 MCG/ML SYRINGE IVP ×2 (00:38→00:46)
[2024-12-05] MEDS: ePHEDrine sulfate 5 MG/ML inj 10 MG IVP (00:41)
[2024-12-05] MEDS: LACTATED RINGERS 1000 ML 1,000 ML IV (00:45)
[2024-12-05] MEDS: CEFAZOLIN 2 GM INJ IVP (01:50)
[2024-12-05] MEDS: AZITHROMYCIN 500 MG in 0.9 % SODIUM CHLORIDE 250 ml 250 ML 255 MG IVPB (01:55)
[2024-12-05] MEDS: LACTATED RINGERS 1000 ML 1,000 ML 125 ML IV ×2 (02:13→04:24)
--- NOTE | 2024-12-05 02:35 | PM.OBPNL ---
Subjective Date Seen: 12/05/24 Narrative: Andressa has been changing positions with help for the last 30 minutes. FHT have been Category II now beginning to be tachycardic in the 160-170's. Variable decelerations seen, Dr. Nails was contacted to evaluate for possible C/S due to non-reassuring FHT. As she was reviewing the heart rate strip, there was a prolonged deceleration to the 70's over approximately 3 minutes. A Radha Bender was called and patient was brought to the OR, Dr. Nails arrived to OR shortly after and EFM placed with FHT's obtained in the 150's. Please see her note for delivery. Objective Vital Signs: Last Vital Signs Temp 98.3 F 12/05/24 01:07 Pulse 104 H 12/05/24 01:30 Resp 18 12/05/24 01:07 BP 124/70 12/05/24 01:30 Pulse Ox 80 L 12/04/24 22:42 Contractions Contraction intensity: Moderate Plan Plan: at 40.5 Radha Bender for non-reassuring FHT OB consult for C/S
[2024-12-05 02:45] LABS: ABG PCO2 33 mmHG (35-45); Base Excess ABG -4.8 mmol/L (-3.0-3.0); HCO3 ABG 19 mmol/L (21-28); Oxygen Saturation ABG 53 % (92-100); TCO2 ABG 17 mmol/l (21-30); pH ABG 7.38 (7.35-7.45)
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
--- NOTE | 2024-12-05 02:54 | W.ANESCHARGE ---
Anesthesia Charges Start Date/Time Anesthesia Start Date: 01/05/25 Anesthesia Start Time: 01:40 Stop Date/Time Anesthesia Stop Date: 01/05/25 Anesthesia Stop Time: 03:25 Summary Emergency: DIGITAL ADVERTISING ANALYST Coding CPT Codes CPT Codes: ANES/ANALG CS DELIVER ADD-ON - 76472 ([id number]) P2 - PATIENT W/MILD SYST DISEASE, QZ - DIGITAL ADVERTISING ANALYST SVC W/O PROPELLER ENGINEER BY Additional Codes: Summary - Emergency: DIGITAL ADVERTISING ANALYST ([id number])
--- NOTE | 2024-12-05 02:54 | W.PM.NB ---
Nerve Block Nerve Block Time Seen by Provider: 03:10 Date Seen: 12/05/24 Type of block requested by surgeon for post-operative analgesia: TAP Side: bilateral Time out performed: Yes Verification of patient name: Yes Verification of date of : Yes Site marking: site marked Name of person performing procedure: Jaret Vincent Continuous monitoring Was continuous monitoring of O2 sat, B/P, campus monitor, recorded every 15 minutes?: Yes Procedure Checklist: sterile prep, needles and gloves Ultrasound guided. Images saved: Yes Medications given in 5ml increments after negative aspiration: Marcaine %: 0.25 mL: 30 Needle gauge: 20 and Exparel mL: 10 Needle gauge: 20 Patient tolerated procedure well: Yes Additional comments: Injected in 5ml increments after negative aspiration Block Charges Block Charge (with Pro Fee): TAP Bilateral Use of Ultrasound Machine for Block: Yes- US Guidance/pain block
[2024-12-05] MEDS: KETOROLAC 30 MG/ML inj IVP ×4 (03:03→21:03)
--- NOTE | 2024-12-05 03:41 | PM.OBPRCCS ---
Procedure Time Seen by Provider: 01:00 Date of procedure: 12/05/24 Procedure Done: Global Will [facility] bill your pro fee for this procedure?: Yes Procedure Description: DELIVERY BY SECTION Date of Service: 12/05/2024 Delivery time: 212 Summary: Andressa is a 24 y/o admitted for early labor and augmentation as needed at 40w4d. Consulted by CNM to review her heart rate tracing. She's had cat II strip for the majority of her labor and had been progressing on her own but now decelerations were getting worse and more frequent. Shortly after, patient had a a 4 minutes deceleration down to the 60s bpm at 0132. Advised CNM to give patient terbutaline 0.25 mg SQ as patient's deceleration are correlative with contractions. A code white was called. Upon my arrival in the OR at 0136, heart rate had recovered and in 150-160s bpm, moderate variability and no active deceleration at the time. SVE: /-1, cervix was swollen especially posterior half of the cervix. Caput noted. OP presentation. Discussed with patient that I recommend delivery via section. Patient has been having intermittent variable, late, and prolonged decelerations during almost the entirety of her labor course. Had few stretches of minimal variability. She has never been on pitocin and only had AROM for augmentation. Her cervix is edematous and would we would not be able to pitocin to augment her labor given her prolonged cat II strip. Decision made to dose epidural instead of going under general anesthesia given current heart rate has remained in 150-160s bpm the entire time while we've been in the OR. Primary Indication: 1. Nonreassuring heart tracing remote from delivery Procedures: Primary Lower uterine transverse section Specimens Removed: Placenta Surgeon: Kerri Nails MD Anesthesia: Epidural, TAP Report: Prophylactic antibiotics, 2 g of Ancef and 500 mg of Azithromycin were given before patient was taken to OR. After arrival to the operating room patient was placed in the supine position with left lateral tilt after administration of spinal anesthesia. Laparotomy A pfannenstiel incision was made through the anterior abdominal wall with #10 scalpel approximately 2 cm above the pubic symphysis. The incision was extended sharply with the #10 scalpel through the subcutaneous tissue to the level of fascia. The fascia was entered sharply with a #10 scalpel (Pfannenstiel) in the midline and extended in semi-elliptical fashion with digit. The rectus muscles were in the midline bluntly with digits. The peritoneum was then entered bluntly. The peritoneal incision was then extended superiorly and inferiorly under direct visualization with care being taken to avoid bladder and bowel. No adhesions were noted. The peritoneal incision was enlarged bluntly by lateral traction from the surgeon's and heel sprayer first's hand. Bhanu retractor was inserted into the abdomen. Delivery A bladder flap was developed by grasping with Dominican forcep and enter with Metzenbaun scissor. Then sharp and blunt dissection with Metzenbaum scissor and fingers were performed. A low transverse hysterotomy was made then with #10 scalpel and extended laterally and cephalad with fingers in a low transverse fashion with Manu Mendez technique with care being taken to avoid injury to the fetus. The amniotic cavity (membrane) was then entered with spontaneous rupture of membrane, and the amniotic fluid was noted to be clear, fetus was delivered cephalic. With delivery of the baby, no extension was noted. Placenta was delivered spontaneously with steady traction on cord and manual separation of placenta from uterine wall. Closure Uterine cavity was cleaned after placental delivery with lap sponge x 2. The hysterotomy was closed in two layers with stitches using 0 vicryl with continuous locking stitches and 0 monocryl in a continuous non locking manner. Hemostasis was achieved as needed with electrocautery. The ovaries/tubes/uterine surface were evaluated. They were found to be normal. Bhanu retractor removed and hemostasis was confirmed again. Fascia was closed with running stitches using 0 vicryl. Subcutaneous layer was irrigated. Hemostasis was checked for and found to be adequate. The subcutaneous layer was closed with running 2-0 chromic sutures. The skin was closed with 4-0 Monocryl subcuticular sutures . The incision was cleaned and covered with a compression bandage and the procedure considered terminate at this time. Findings: Normal uterus, bilateral ovaries and tubes 7,7,8 weight 3395 g. Intraoperative Complications: None QBL: 483 cc UOP: 750 cc Uterotonics: 40u of pitocin Disposition: The patient tolerated the procedure well. She was recovered in Obstetric PACU for close monitoring in stable condition, with a contracted uterus and normal transvaginal bleeding. The infant was handed off to [facility] initial assessment resuscitation. A segment of the cord was obtained for umbilical cord gases. Cord blood gas was not available at time of operative note entered. The placenta was sent to pathology. Debrief with OR team performed and specimen reviewed at the conclusion of the procedure.
[2024-12-05] MEDS: DOCUSATE SODIUM 100 MG CAPSULE PO (08:13)
[2024-12-05] MEDS: ACETAMINOPHEN 500 MG TABLET 1000 MG PO ×2 (08:13→15:59)
--- NOTE | 2024-12-05 09:53 | PM.OBPNVD1 ---
OB - PN:Subj Subjective Time Seen by Provider: 09:53 Date Seen: 12/05/24 Narrative: Andressa is DOD from an emergent primary LTCS for intolerance of labor. She states her pain is moderately well-controlled. She would like to have her Montgomery catheter removed and I reviewed that she has to feel safe getting out of bed and walking to the restroom in order to urinate before the nurses can take her catheter out. If she feels comfortable doing that she can have her Montgomery discontinued. She is tolerating a regular diet. Planning on . She has not passed flatus. OB - PN: Obj Exam Physical Exam: Vital signs: Temp Pulse Resp BP Pulse Ox O2 Del Method 98.7 F 92 16 109/68 96 Room Air 12/05/24 08:00 12/05/24 08:00 12/05/24 08:00 12/05/24 08:00 12/05/24 08:00 12/05/24 03:55 Narrative: General: Pleasant, , well groomed woman in no acute distress. Vital signs: Included in her electronic medical record. Heart: Regular rate and rhythm without gallop, rub or murmur. Chest: Clear to auscultation bilaterally. Abdomen: Soft, nontender and nondistended with normal bowel sounds throughout. Fundus is firm at the umbilicus in the midline. Incision: Dressing is clean, dry and intact. Extremities: No pain or edema. OB - PN: Obj Data Labs Labs: Laboratory Results - last 24 hr 12/05/24 02:43 ABG pH 7.38 ABG pCO2 33 L ABG pO2 85.0 ABG HCO3 19 L ABG Total CO2 17 L ABG O2 Saturation 53 L ABG Base Excess -4.8 L OB - PN: A/P Delivery Assessment and Plan (1) Pain during labor: Status: Deleted (2) Status post primary low transverse section: Problem details: Code White, boy, Latrell. Status: Acute Assessment and Plan: 1. Continue postop and care. 2. Likely discharge home on Saturday12/07/24.
[2024-12-05 14:23] LABS: Basophils Percent Auto 0.2 % (0.0-3.0); Eosinophils Percent Auto 0.4 % (0.0-7.0); Hematocrit 29.6 % (33.0-51.0); Hemoglobin* 9.8 gm/dL (12.0-16.0); Immature Granulocytes Pct Auto 1.3 %; Lymphocytes Percent Auto 12.8 % (20-44); Mean Corpuscular HGB Conc 33 gm/dL (32-36); Mean Corpuscular Hemoglobin 30 pg (26-34); Mean Corpuscular Volume 91 fL (80-100); Monocytes Percent Auto 5.6 % (0.0-11.0); Neutrophils Percent Auto 79.7 % (42.0-72.0); Platelet Count* 198 K/uL (140-440); RDW Coefficient of Variation % 13.4 % (11.5-15.5); Red Blood Count 3.27 m/uL (4.00-5.20); White Blood Count* 15.43 K/uL (4.50-11.00)
[2024-12-05 14:33] LABS: Slide Review Reflex No
[2024-12-05] MEDS: OXYCODONE 5 MG TABLET PO ×2 (16:00→23:37)
[2024-12-06] MEDS: ACETAMINOPHEN 500 MG TABLET 1000 MG PO ×3 (00:39→18:47)
[2024-12-06] MEDS: KETOROLAC 30 MG/ML inj IVP ×2 (02:12→09:00)
[2024-12-06 02:16] VITALS: BP 109/72; PULSE 97; RESP 18; TEMP 36.6
[2024-12-06] MEDS: OXYCODONE 5 MG TABLET PO ×2 (04:56→21:55)
[2024-12-06 04:57] VITALS: BP 116/80; PULSE 94; RESP 18; TEMP 36.6; O2SAT 98
[2024-12-06 05:17] LABS: Hemoglobin* 12.9 gm/dL (12.0-16.0)
[2024-12-06] MEDS: DOCUSATE SODIUM 100 MG CAPSULE PO (08:59)
--- NOTE | 2024-12-06 09:05 | PM.OBPNVD1 ---
OB - PN:Subj Subjective Date Seen: 12/06/24 Narrative: Andressa is a 24 y.o. G 1 P 1 who was admitted to [facility] for spontaneous onset. ?She had a NVD that was uncomplicated. The patient feels well. ?The pain is well controlled with current medications. ?She has no new complaints. ?She is breast feeding and reports things are going well. the patient has done well.? Vitals have been stable.? She has remained afebrile.? Has a good appetite, is tolerating a general diet. ?She is voiding without difficulty.? She is passing gas and has not had a bowel movement.? She is ambulating and denies any dizziness.? Has small amount of rubra lochia. Problems: Denies OB - PN: Obj Exam Physical Exam: Vital signs: Temp Pulse Resp BP Pulse Ox O2 Del Method 97.9 F 94 18 116/80 98 Room Air 12/06/24 04:57 12/06/24 04:57 12/06/24 04:57 12/06/24 04:57 12/06/24 04:57 12/06/24 04:57 Narrative: GENERAL APPEARANCE:? normal affect, alert, no distress MOOD:? appropriate CHEST:? clear to auscultation HEART:? regular rate and rhythm ABDOMEN:? soft, non-tender the uterine fundus is At Umbilicus, Midline and is appropriate for the stage of recovery. EXTREMITIES:? normal and no edema INCISION: Healing well, no surrounding erythema, abnormal induration or discharge OB - PN: Obj Data Labs Labs: Laboratory Results - last 24 hr 12/04/24 12/05/24 12/05/24 05:11 05:11 14:16 WBC 15.43 H RBC 3.27 L Hgb 9.8 L Hct 29.6 L MCV 91 MCH 30 MCHC 33 RDW Coeff of Jade 13.4 Plt Count 198 Neut % (Auto) 79.7 H Lymph % (Auto) 12.8 L [place] % (Auto) 5.6 Eos % (Auto) 0.4 Baso % (Auto) 0.2 Neut # (Auto) 12.30 H Lymph # (Auto) 2.00 [place] # (Auto) 0.90 Eos # (Auto) 0.10 Baso # (Auto) 0.00 Abs Immat Gran (auto) 0.20 Imm/Tot Granulo (auto) 1.3 Blood Type A Negative Antibody Screen NEGATIVE Screen Negative 12/06/24 05:11 WBC RBC Hgb 12.9 Hct MCV MCH MCHC RDW Coeff of Jade Plt Count Neut % (Auto) Lymph % (Auto) [place] % (Auto) Eos % (Auto) Baso % (Auto) Neut # (Auto) Lymph # (Auto) [place] # (Auto) Eos # (Auto) Baso # (Auto) Abs Immat Gran (auto) Imm/Tot Granulo (auto) Blood Type Antibody Screen Screen OB - PN: A/P Delivery Assessment and Plan (1) care and examination immediately after delivery: Status: Acute (2) Status post primary low transverse section: Problem details: Code White, boy, Latrell. Status: Acute Plan day: 1 Plan: routine care Comments: Routine post-op care. , may see if needed? Hgb 12.9. Of note, yesterday her hemoglobin was 9.8. Anticipate discharge tomorrow.
[2024-12-06 12:15] VITALS: BP 100/63; PULSE 100; RESP 16; TEMP 37.1; O2SAT 96
[2024-12-06] MEDS: IBUPROFEN 600 MG TABLET PO ×2 (17:15→23:50)
[2024-12-06 20:30] VITALS: BP 100/68; PULSE 80; RESP 18; TEMP 36.6; O2SAT 98
[2024-12-07 00:15] VITALS: BP 99/67; PULSE 86; RESP 18; TEMP 36.4; O2SAT 98
[2024-12-07] MEDS: ACETAMINOPHEN 500 MG TABLET 1000 MG PO (04:09)
[2024-12-07] MEDS: IBUPROFEN 600 MG TABLET PO ×2 (06:59→16:48)
--- NOTE | 2024-12-07 07:55 | PM.OBDSVD1 ---
DS: Providers Provider Date Seen: 12/07/24 Date of admission: 12/04/24 04:27 Primary care physician: Tianna Garcia MD Admitting Clinician: Annel Cowart CNM Consults: 12/05/24 02:41 Consult to Physician [CONS] Routine Comment: Consulting Provider: Kerri Nails Has provider been notified: Yes Attending Physician on discharge: Gómez Chung CNM Date of Discharge: 12/07/24 DS: Diagnosis Discharge Diagnosis (1) Status post primary low transverse section: Status: Acute Problem details: Code White, boy, Latrell. (2) care and examination immediately after delivery: Status: Acute (3) Lactating mother: Status: Acute Exam Narrative: Exam Narrative: VSS. ?AfebrileGENERAL APPEARANCE: ?normal affect, alert, no distress MOOD: ?appropriate HEENT: normocephalic, neck supple, full ROM CHEST: ?Symmetrical chest wall movement. ?Normal respiratory effort. ?Clear to auscultation HEART: ?regular rate and rhythm ABDOMEN: ?soft, non-tender. Uterine fundus is firm, at Umbilicus, Midline and is appropriate for the stage of recovery. ?Bowel sounds present. EXTREMITIES: ?normal and no edema SKIN: warm, dry. ? ?Incision clean/dry/well approximated. ?No signs of infection noted. Const: Vital Signs, click to edit/add: Vital Signs - 24 hr 12/06/24 12:15 12/06/24 20:30 12/07/24 00:15 Temperature 98.8 F 97.8 F 97.6 F Pulse Rate [Pulse Oximeter] 100 80 86 Respiratory Rate 16 18 18 Blood Pressure [Le ft Arm] 100/63 100/68 99/67 Pulse Oximetry 96 98 98 Oxygen Delivery Me thod Room Air Room Air Room Air Documenting provider has reviewed patient's vital signs: yes OB - DS: Summary Hospital Course Hospital Course: Andressa is a 24 y.o. who was admitted to [facility] for labor. ?She had an uncomplicated primary for non-reassuring FHT's.?The patient feels well. ?The pain is well controlled with current medications. ?She has no new complaints. ?She is breast feeding and reports things are going well.? the patient has done well.? Vitals have been stable.? She has remained afebrile.? Has a good appetite, is tolerating a general diet. ?She is voiding without difficulty.? She is passing gas and has had a bowel movement.? She is ambulating and denies any dizziness.? Has Small amount of rubra lochia. ?She is planning Paragard for prevention. Peripartum Data Infant delivery method: Primary C/S; Labored Procedures: Procedures Operation Date: 12/05/24 02:30 Actual Procedure Side Surgeon p Primary Section Kerri Nails MD complications: none [place] Gender: Male Infant Discharge Plan: Home Status at Discharge Functional status at discharge: independent ambulation Overall status at discharge: patient is progressing back to baseline Time Spent with Patient Time attestation: Total time spent providing and/or coordinating discharge services: Time spent: Less than 30 minutes Discharge Plan Discharge Disposition: Home, Self-Care Date of Admission: 12/04/24 04:27 Attending Provider on Discharge: Gómez Chung Consulting Providers: Kerri Nails Primary Care Provider: Tianna Garcia Condition: Stable Anticipated Discharge Date/Time: 12/07/24 12:00 Discharge Medications: New acetaminophen 500 mg Tablet 1,000 mg PO Q6H PRN (Reason: Pain) Qty: 0 0RF docusate sodium 100 mg Capsule 100 mg PO DAILY Qty: 90 0RF ibuprofen 600 mg Tablet 600 mg PO Q6H PRN (Reason: Pain) Qty: 60 0RF oxycodone 5 mg Tablet 5 - 10 mg PO Q4H PRN (Reason: Pain) Qty: 10 0RF Continued DHA 200 mg capsule PO Discharge Orders: Discharge Order (Routine); Ordered 12/07/24 Ordered By: Gómez Chung Patient Education: OB Over the Counter Medication Information, OB /Breast Feeding Additional Instructions: Discharge instructions were reviewed with the patient including signs and symptoms of infection and home going medications Lifting Restrictions: 20 pounds for 6 weeks No not submerge incision under water X 2 weeks? Nothing vaginally for 6 weeks: no tampons or intercourse Do not drive while taking narcotic pain medication(s) Off Work or School for 8 weeks 2-week visit: incision check, discuss feeding concerns, review control options and screen for anxiety/depression. 6-week visit for an annual exam. consultation services are available to all mothers and babies for the first year after delivery.? To make an appointment, please call [phone]. Activity Level: Activity as Tolerated Discharge Diet: Regular Follow Up Appointments: [facility] [Provider Group] Forms: [employer] Info Instructions
[2024-12-07 08:18] VITALS: BP 112/70; PULSE 110; RESP 16; TEMP 37; O2SAT 96
[2024-12-07 16:37] VITALS: BP 104/68; PULSE 106; RESP 16; TEMP 36.8; O2SAT 97
[2024-12-07 20:10] VITALS: BP 114/69; PULSE 96; RESP 16; TEMP 36.7; O2SAT 98
[2024-12-08] MEDS: OXYCODONE 5 MG TABLET PO ×2 (02:29→11:05)
[2024-12-08 04:29] VITALS: BP 105/64; PULSE 81; RESP 14; TEMP 36.5; O2SAT 97
[2024-12-08] MEDS: IBUPROFEN 600 MG TABLET PO (08:07)
[2024-12-08 09:23] VITALS: BP 109/72; PULSE 109; RESP 18; TEMP 36.9; O2SAT 94
[2024-12-08] MEDS: ACETAMINOPHEN 500 MG TABLET 1000 MG PO (11:04)
[2024-12-08] MEDS: DOCUSATE SODIUM 100 MG CAPSULE PO (11:15)
[2024-12-09 00:08] LABS: Rapid Plasma Reagin (RPR) Non Reactive (Non Reactive)
--- NOTE | 2024-12-17 10:37 | P.ANES_ITS ---
Anesthesia Charges Start Date/Time Anesthesia Start Date: 12/05/24 Anesthesia Start Time: 01:40 Stop Date/Time Anesthesia Stop Date: 12/05/24 Anesthesia Stop Time: 03:25 Summary Emergency: TOOLMAKER HELPER Coding CPT Codes CPT Codes: ANES/ANALG CS DELIVER ADD-ON - 82686 ([id number]) P2 - PATIENT W/MILD SYST DISEASE, QZ - TOOLMAKER HELPER SVC W/O SYSTEMS TESTING LABORATORY TECHNICIAN BY Additional Codes: Summary - Emergency: TOOLMAKER HELPER ([id number])
--- NOTE | 2024-12-17 10:37 | W.ANESCHARGE ---
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
== END 2024-12-08 12:15 | disposition home or self-care (01) | DRG 540 ==
LOC: OB OUT 04:27 → OB 04:27
PROVIDERS: Obstetrics & Gynecology; Admitting Provider Midwife; PCP Family Medicine; Visit Provider Midwife
PROC: (CPT 59514; principal; 2024-12-05 02:15)
DX: O76 Abnormality in fetal heart rate and rhythm complicating labor and delivery (principal); Z3A.40 40 weeks gestation of pregnancy; Z37.0 Single live birth; O26.893 Other specified pregnancy related conditions, third trimester; Z67.11 Type A blood, Rh negative; O48.0 Post-term pregnancy; G89.18 Other acute postprocedural pain; Z78.9 Other specified health status; F12.91 Cannabis use, unspecified, in remission; O99.824 Streptococcus B carrier state complicating childbirth
CPT/HCPCS: 01967; 01968; 36415; 36600; 64488; 74018; 76942; 82803; 85018; 85025; 85461; 86592; 86850; 86900; 86901; 88307; 99140; G0463; A4314; A9270; J0456; J0665; J0666; J0690; J1200; J1885; J2270; J2371; J2405; J2590; J2791; J2795; J3010; J7050; J7120

== ENCOUNTER 2025-02-02 18:43 | Outpatient (CLI) | payer BC, SELFPAY ==
[2025-02-02 21:04] LABS: Bacterial Vaginosis* Negative (Negative); Candida glab/krus NOT DETECTED (No Detected); Candida species NOT DETECTED (No Detected); Trichomonas vaginalis NOT DETECTED (No Detected)
== END 2025-02-02 18:44 | disposition home or self-care (01) ==
PROVIDERS: PCP Family Medicine; Visit Provider Advanced Practice Midwife
DX: O72.1 Other immediate postpartum hemorrhage (principal)
CPT/HCPCS: 81513; 87481; 87661

== ENCOUNTER 2025-02-03 08:03 | Outpatient (CLI) | payer BC, SELFPAY ==
--- NOTE | 2025-02-03 08:15 | CRLHL7_ITS ---
For Patients: As a result of the Century Cures Act, medical imaging exams and procedure reports are released immediately into your electronic medical record. You may view this report before your referring provider. If you have questions, please contact your health care provider. INDICATION: IUD displacement, bleeding COMPARISON: none TECHNIQUE: 2D garibay scale and color Doppler images were acquired of the pelvis using a transabdominal and transvaginal approach. FINDINGS: Sonographic images demonstrate a normal size and smooth outer contour of the uterus. Uterus measures 7.7 cm in length by 4.5 cm in AP diameter by 5.4 cm in transverse dimension. The myometrium has a normal uniform echotexture. The endometrial lining appears normal and measures 5 mm in composite thickness. IUD is present within the endocervical canal. The right ovary measures 3.4 x 2.5 x 2.0 cm in size and the left ovary measures 3.0 x 1.1 x 1.6 cm. The ovaries demonstrate normal arterial and venous blood flow on color Doppler analysis. There are no suspicious fluid collections within the cul-de-sac. Trace physiologic free fluid. IMPRESSION: IUD is present in the endocervical canal. Dictated by Torin Marinelli MD @ 02/03/2025 8:47:07 AM (Electronically Signed)
== END 2025-02-03 08:04 | disposition home or self-care (01) ==
LOC: US 08:04
PROVIDERS: PCP Family Medicine; Visit Provider Advanced Practice Midwife
DX: T83.32XA Displacement of intrauterine contraceptive device, initial encounter (principal); N92.0 Excessive and frequent menstruation with regular cycle
CPT/HCPCS: 76830; 76856

== ENCOUNTER 2025-04-07 10:59 | Outpatient (CLI) | payer BC, SELFPAY ==
[2025-04-07 14:41] LABS: Bacterial Vaginosis* Negative (Negative); Candida glab/krus NOT DETECTED (No Detected)
[2025-04-07 15:15] LABS: Chlamydia DNA Amplified* NOT DETECTED (No Detected); GC DNA Amplified* NOT DETECTED (No Detected)
== END 2025-04-07 11:00 | disposition home or self-care (01) ==
PROVIDERS: PCP Family Medicine; Visit Provider Midwife
DX: N89.8 Other specified noninflammatory disorders of vagina (principal); O86.13 Vaginitis following delivery; B96.89 Other specified bacterial agents as the cause of diseases classified elsewhere
CPT/HCPCS: 81513; 87481; 87491; 87591; 87661

== ENCOUNTER 2025-04-27 17:07 | Outpatient (CLI) | payer BC, SELFPAY ==
[2025-04-27 21:07] LABS: Bacterial Vaginosis* POSITIVE (Negative); Candida glab/krus NOT DETECTED (No Detected)
== END 2025-04-27 17:08 | disposition home or self-care (01) ==
LOC: NFLDREF 17:07
PROVIDERS: PCP Family Medicine; Visit Provider Advanced Practice Midwife
DX: N89.8 Other specified noninflammatory disorders of vagina (principal)
CPT/HCPCS: 81513; 87481; 87661